=== PATIENT | male | born 1970 | race Caucasian/White ===

== ENCOUNTER 2021-05-25 18:05 | Emergency (ER) | payer OTHER ==
[~2021-05-25] VITALS: Ht 170.2 cm; Wt 87.5 kg
[2021-05-25 18:14] VITALS: BP 123/57
[2021-05-25] MEDS ORDERED: LORA10TA60 PO (19:05)
[2021-05-25] MEDS ORDERED: FLONAS NS (19:05)
[2021-05-25 19:13] VITALS: BP 123/57
--- NOTE | 2021-05-25 19:13 | NUR ---
Patient discharged with v/s stable. Written and verbal after care instructions given and explained. Patient alert, oriented and verbalized understanding of instructions. Ambulatory with steady gait. All questions addressed prior to discharge. ID band removed. Patient advised to follow up with PMD. Rx of LORATADINE AND FLONASE given. Patient educated on indication of medication including possible reaction and side effects. Opportunity to ask questions provided and answered.
== END 2021-05-25 19:07 | disposition home or self-care (01) ==
LOC: MED 18:05
DX: J30.9 Allergic rhinitis, unspecified (principal); Z79.899 Other long term (current) drug therapy
CPT/HCPCS: 99283